=== PATIENT | female | born 1975 | race Native Hawaiian/Other Pacific Islander ===

== ENCOUNTER 2018-10-22 10:34 | Outpatient (CLI) | payer BC | END 2018-10-22 20:30 | disposition home or self-care (01) | LOC: MAMMO 10:34 → US 10:34 → MAMMO 20:30 | DX: N63.20 Unspecified lump in the left breast, unspecified quadrant (principal) ==

== ENCOUNTER 2019-11-03 12:56 | Outpatient (CLI) | payer BC | END 2019-11-03 23:30 | disposition home or self-care (01) | LOC: MAMMO 12:56 | DX: Z12.31 Encounter for screening mammogram for malignant neoplasm of breast (principal) ==

== ENCOUNTER 2020-01-08 16:06 | Outpatient (CLI) | payer BC | END 2020-01-08 22:01 | disposition home or self-care (01) | LOC: RAD 16:06 | DX: M79.645 Pain in left finger(s) (principal) ==

== ENCOUNTER 2021-07-11 08:59 | Outpatient (CLI) | payer BC | END 2021-07-11 19:12 | disposition home or self-care (01) | LOC: RAD 08:59 | PROVIDERS: ATTEND Family Medicine | DX: R10.9 Unspecified abdominal pain (principal) ==

== ENCOUNTER 2021-11-04 09:09 | Outpatient (CLI) | payer BC | END 2021-11-04 20:25 | disposition home or self-care (01) | LOC: MAMMO 09:09 | PROVIDERS: ATTEND Obstetrics & Gynecology | DX: Z12.31 Encounter for screening mammogram for malignant neoplasm of breast (principal) ==

== ENCOUNTER 2023-07-13 10:58 | Outpatient (CLI) | payer OTHER | END 2023-07-13 20:07 | disposition home or self-care (01) | LOC: MRI 10:58 | PROVIDERS: ATTEND Orthopaedic Surgery | DX: S80.02XA Contusion of left knee, initial encounter (principal); Y92.89 Other specified places as the place of occurrence of the external cause ==